=== PATIENT | female | born 1955 | race Caucasian/White ===

== ENCOUNTER → 2016-06-28 | Outpatient (CLI) | payer OTHER | LOC: BMCIMAGING 14:33 | DX: Z12.31 Encounter for screening mammogram for malignant neoplasm of breast (principal); Z85.3 Personal history of malignant neoplasm of breast | CPT/HCPCS: G0202 ==

== ENCOUNTER 2016-07-06 18:42 | Emergency (ER) | payer OTHER ==
[2016-07-06] MEDS ORDERED: LORazepam 1 MG TAB PO ONE (19:26)
--- NOTE | 2016-07-06 19:31 | EDPHY ---
H & P Time Seen by Provider: 07/06/16 18:59 HPI/ROS: CHIEF COMPLAINT: Methadone and benzodiazepine withdrawal HISTORY OF PRESENT ILLNESS: 61-year-old female history of chronic chronic pain secondary to orthopedic surgeries, chronic methadone use took a taxi to the emergency department because she would like to get into a rehab facility for both benzodiazepine and methadone withdrawal. It is currently Friday night. She received her dose yesterday of methadone from Dr. Mario Menendez . She denies seizure. Denies vomiting. She is concerned that she will experience further withdrawal symptoms. Denies suicidal or homicidal ideation. Denies hallucination PHYSICAL EXAM (Prior to examination, patient consented to physical exam, hands were washed and my usual and customary physical exam procedures followed) 1) GENERAL: Well-developed, well-nourished, alert and oriented. Appears anxious. 2) HEAD: Normocephalic 3) HEENT: sclera anicteric 4) LUNGS: Breathing comfortably. 5) SKIN: no rash. 6) MUSCULOSKELETAL: right lower extremity Parminder boot in place 7) NEUROLOGIC: Answering questions appropriately. Smoking Status: Former smoker Constitutional: Initial Vital Signs Temperature (C) 37.3 C 07/06/16 18:56 Heart Rate 138 H 07/06/16 18:56 Respiratory Rate 18 07/06/16 18:56 Blood Pressure 142/92 H 07/06/16 18:56 O2 Sat (%) 88 L 07/06/16 18:56 O2 Delivery Mode Room Air Allergies/Adverse Reactions: gabapentin [From Neurontin] Allergy (Verified 02/13/16 18:07) mirtazapine [From Remeron] Allergy (Verified 02/13/16 18:08) Home Medications: Medication Instructions Recorded Aspirin [Aspirin 81mg (*)] 81 mg PO HS 02/13/16 Atorvastatin Calcium [Lipitor 40 40 mg PO HS 02/13/16 mg (*)] Nebivolol HCl [Bystolic 5 mg (*)] 5 mg PO HS 02/13/16 clonazePAM [klonoPIN (*)] 2 mg PO TID 02/13/16 Acetaminophen [Tylenol 325mg (*)] 650 mg PO Q4HRS PRN #0 tab 02/18/16 Enoxaparin [Lovenox 40 MG (*)] 40 mg SC DAILY #0 syr 02/18/16 HYDROmorphone HCL [Dilaudid 2 mg 2 mg PO Q4HRS PRN #0 tab 02/18/16 (*)] Ibuprofen [Motrin (*)] 400 mg PO Q4HRS PRN #0 tab 02/18/16 Lactulose [Cephulac 20 gm/30 ml 20 gm PO TID PRN #0 ml 02/18/16 oral soln (*)] Magnesium Hydroxide [Milk of 30 ml PO DAILY PRN #0 udcup 02/18/16 Magnesia (*)] Methadone HCl [Methadone HCl 10 mg 25 mg PO BID #0 tab 02/18/16 (*)] Naloxone HCl [Narcan] 0 mg IVP PRN PRN #0 inj 02/18/16 Polyethylene Glycol 3350 [Miralax 17 gm PO DAILY PRN #0 pkt 02/18/16 17 gm (*)] Sennosides/Docusate Sodium 1 - 2 tab PO BID #0 tab 02/18/16 [Senokot-S] Simethicone [Mylicon] 80 - 160 mg PO QID PRN #0 tab.chew 02/18/16 Temazepam [Restoril 15 MG (*)] 15 - 30 mg PO HS PRN #0 cap 02/18/16 oxyCODONE/APAP 5/325 [Percocet 1 - 2 tab PO Q4HRS PRN #0 tab 02/18/16 5/325 (*)] LORazepam [Ativan 1 mg (RX)] 1 mg PO Q6 PRN #7 tab 07/06/16 Ondansetron Odt [Zofran Odt] 4 mg PO Q4PRN PRN #10 tab 07/06/16 MDM/Departure - MDM Medications Given: Discontinued Medications Lorazepam (Ativan) 1 mg PO EDNOW ONE Stop: 07/06/16 19:27 Last Admin: 07/06/16 19:31 Dose: 1 mg Lorazepam (Ativan 1 Mg Prepack#4) 1 btl TAKEHOME EDNOW ONE Stop: 07/06/16 19:43 Last Admin: 07/06/16 19:46 Dose: 1 btl Ondansetron HCl (Zofran Odt 4 Mg Prepack#2) 1 btl TAKEHOME EDNOW ONE Stop: 07/06/16 19:43 Last Admin: 07/06/16 19:48 Dose: 1 btl ED Course/Re-evaluation: The patient's nurse and I spent an extensive period of time speaking with the patient. Informed her that we are unable to provide methadone from the emergency department. Informed her that because it is currently Friday , there is no Case Management emergency department currently , we discussed the difficulties of getting into a long-term rehab facility for both benzodiazepine and methadone withdrawal on a Friday night. I have offered to provide her with supportive therapy and local resources, and given kraig prescription for Zofran, given her prescription for Ativan and strongly recommend that tomorrow and/or Friday she make further phone calls to either find a pain management provider and/or rehab facility. I have also left a note for the trimming caser emergency department contact the patient. I empathized with her ongoing situation. - Depart Disposition: Home, Routine, Self-Care Clinical Impression: Methadone withdrawal, Benzodiazepine dependence Condition: Good Instructions: Methadone (By mouth), Ondansetron (By mouth), Lorazepam (By injection) Additional Instructions: Call 911 if you developed chest pain, shortness of breath, thoughts of hurting herself, or any other symptoms that concern you Prescriptions: LORazepam [Ativan 1 mg (RX)] 1 mg PO Q6 PRN #7 tab PRN Reason: Anxiety Ondansetron Odt [Zofran Odt] 4 mg PO Q4PRN PRN #10 tab PRN Reason: Nausea Referrals: [facility],. [Clinic] - 07/08/16
[2016-07-06] MEDS ORDERED: LORAZEPAM 1 MG PREPACK#4 BTL TAKEHOME ONE (19:42)
[2016-07-06] MEDS ORDERED: ONDANSETRON 4MG PREPACK#2 BTL TAKEHOME ONE (19:42)
[2016-07-06 19:54] VITALS: BP 133/74; PULSE 61; RESP 16; TEMP 97.9; O2SAT 96
== END 2016-07-06 19:54 | disposition home or self-care (01) ==
DX: F11.23 Opioid dependence with withdrawal (principal); F19.239 Other psychoactive substance dependence with withdrawal, unspecified; Z87.891 Personal history of nicotine dependence; Z79.82 Long term (current) use of aspirin

== ENCOUNTER → 2016-08-01 | Outpatient (CLI) | payer OTHER | LOC: BMCIMAGING 12:54 | DX: R92.8 Other abnormal and inconclusive findings on diagnostic imaging of breast (principal) | CPT/HCPCS: 76641; G0204 ==

== ENCOUNTER 2016-09-04 16:45 | Emergency (ER) | payer OTHER ==
[2016-09-04] MEDS ORDERED: NS 1,000 ML IV ONE (17:12)
--- NOTE | 2016-09-04 17:12 | EDPHY ---
H & P Time Seen by Provider: 09/04/16 16:59 HPI/ROS: CHIEF COMPLAINT: Palpitations and memory loss earlier today HISTORY OF PRESENT ILLNESS: This 61-year-old woman has been on methadone for 20 years until the last 3 weeks when her local pain physician switched her to OxyContin. She went to her appointment this morning at 10:30 a.m. and then got home but does not remember anything from about noon when she took the trash out 10:10 two ten p.m.. She thinks she might have had a seizure and she thinks she had a seizure last month when she 1st went off methadone. However she did not have anyone else notice tonic-clonic activity as no one else was in the room, she did not bite her tongue, not incontinent. She also reports feeling intermittent palpitations short of breath over the past couple of days including getting out of the shower today and noticing a heart rate of 140 and a pulse oximetry in the 70s. REVIEW OF SYSTEMS: Eye: no change in vision ENT: no sore throat Cardiac: No known syncope. No chest pain. Pulmonary: no cough or SOB Abdomen: no vomiting, diarrhea, abdominal pain Musculoskeletal: Multiple chronic pain from orthopedic trauma for which she is on opioids chronically Skin: no rash Neuro: no headache Constitutional: no fever : no urinary symptoms A comprehensive 10 point review of systems is otherwise negative aside from elements mentioned in the history of present illness. PAST MEDICAL HISTORY: Breast cancer, multiple orthopedic, hysterectomy, chronic pain. Social history: Recently moved here from [place] General Appearance: Alert and conversant, cooperative. Eyes: No scleral icterus. ENT, Mouth: Normal mucous membranes. No tongue laceration or abrasion Respiratory: Normal respiratory effort, breath sounds equal, lungs are clear to auscultation. Cardiovascular: Regular rate and rhythm. Tachycardic. Gastrointestinal: Abdomen is soft and non tender. Neurological: Alert and oriented x3. Normally conversant. Face symmetric, normal movement and sensation in all extremities. Normal [id number] bilaterally and no pronator drift. Skin: Warm and dry, no rashes. Musculoskeletal: No peripheral edema and no joint swelling. Psychiatric: Not agitated. Emergency Department course/MDM: Patient presents with palpitations and tachycardia, we will evaluate with EKG and D-dimer and troponin. Patient's earlier altered mental status could be related to medications, also consider transient global amnesia, think seizure would be less likely without tongue biting or incontinence, or without withdrawal from MARYANNE agents. 1830: Results discussed with the patient. Unsure about tachycardia and hypoxemia, possibly that her oximeter was not working correctly given the tachycardia. Pretest probability for pulmonary embolism low, with negative D-dimer I think that does not indicate further workup is required tonight. Referred to primary care physician performance improvement consultant. Warned no driving. Smoking Status: Former smoker Constitutional: Initial Vital Signs Temperature (C) 37 C 09/04/16 16:51 Heart Rate 118 H 09/04/16 16:51 Respiratory Rate 20 09/04/16 16:51 Blood Pressure 117/76 09/04/16 16:51 O2 Sat (%) 97 09/04/16 16:51 O2 Delivery Mode Room Air Allergies/Adverse Reactions: gabapentin [From Neurontin] Allergy (Verified 09/04/16 16:49) mirtazapine [From Remeron] Allergy (Verified 09/04/16 16:49) Home Medications: Medication Instructions Recorded Aspirin 81mg (*) 09/04/16 Oxycontin 09/04/16 Medical Decision Making - Diagnostics EKG Interpretation: 12-lead EKG interpreted by me; official reading is in trace master. My interpretation is sinus tachycardia without ischemic changes. Imaging Results: Imaging Impressions Head CT 09/04/16 17:11 Impression: 1. Normal CT brain without contrast. 2. Mild right sphenoid sinusitis. 3.Consider MRI of the brain without and with contrast enhancement, if there is continued clinical concern for etiology of seizures. Findings and recommendations discussed with Emergency Department physician, CAREN CANTOR at 17:47 hour, 09/04/2016. Final report concurs with initial preliminary interpretation. Imaging: Discussed imaging studies w/ mail sorter and delivery Radiologist Differential Diagnosis: Differential diagnosis considered for narrow complex tachycardia including but not limited to various causes of sinus tachycardia, SVT, atrial flutter and atrial fibrillation. - Data Points Laboratory Results: Laboratory Results 09/04/16 17:30 09/04/16 17:30 09/04/16 09/04/16 09/04/16 17:30 17:30 17:30 WBC 5.53 10^3/uL 10^3/uL (3.80-9.50) RBC 3.93 10^6/uL L 10^6/uL (4.18-5.33) Hgb 12.6 g/dL g/dL (12.6-16.3) Hct 37.7 % L % (38.0-47.0) MCV 95.9 fL fL (81.5-99.8) MCH 32.1 pg pg (27.9-34.1) MCHC 33.4 g/dL g/dL (32.4-36.7) RDW 13.6 % % (11.5-15.2) Plt Count 333 10^3/uL 10^3/uL (150-400) MPV 9.4 fL fL (8.7-11.7) Neut % (Auto) 64.0 % % (39.3-74.2) Lymph % (Auto) 26.9 % % (15.0-45.0) [place] % (Auto) 7.8 % % (4.5-13.0) Eos % (Auto) 0.0 % L % (0.6-7.6) Baso % (Auto) 0.9 % % (0.3-1.7) Nucleat RBC Rel Count 0.0 % % (0.0-0.2) Absolute Neuts (auto) 3.54 10^3/uL 10^3/uL (1.70-6.50) Absolute Lymphs (auto) 1.49 10^3/uL 10^3/uL (1.00-3.00) Absolute Monos (auto) 0.43 10^3/uL 10^3/uL (0.30-0.80) Absolute Eos (auto) 0.00 10^3/uL L 10^3/uL (0.03-0.40) Absolute Basos (auto) 0.05 10^3/uL 10^3/uL (0.02-0.10) Absolute Nucleated RBC 0.00 10^3/uL 10^3/uL (0-0.01) Immature Gran % 0.4 % % (0.0-1.1) Immature Gran # 0.02 10^3/uL 10^3/uL (0.00-0.10) D-Dimer < 0.27 ug/mLFEU ug/mLFEU (0.00-0.50) Sodium 136 mEq/L mEq/L (134-144) Potassium 3.9 mEq/L mEq/L (3.5-5.2) Chloride 101 mEq/L mEq/L (97-110) Carbon Dioxide 25 mEq/l mEq/l (22-31) Anion Gap 10 mEq/L mEq/L (8-16) BUN 17 mg/dL mg/dL (7-23) Creatinine 0.8 mg/dL mg/dL (0.6-1.0) Estimated GFR > 60 Glucose 112 mg/dL H mg/dL (70-100) Calcium 10.0 mg/dL mg/dL (8.5-10.4) Troponin I < 0.012 ng/mL ng/mL (0-0.034) Medications Given: Discontinued Medications Sodium Chloride (Ns) 1,000 mls @ 0 mls/hr IV ONCE ONE PRN Reason: Wide Open Stop: 09/04/16 17:13 Last Admin: 09/04/16 17:30 Dose: 1,000 mls Departure - Departure Disposition: Home, Routine, Self-Care Clinical Impression: Amnesia, global, transient Condition: Good Instructions: Transient Global Amnesia (ED) Additional Instructions: It is possible that you had a seizure although I think that is less likely. It is possible that you had transient global amnesia. No driving until cleared by follow-up physician. Please call the referral physician's office tomorrow and tell them that you are referred to her through the emergency department. Try to follow up in the next week. Referrals: NONE *PRIMARY CARE P,. [Primary Care Provider] - As per Instructions Gini Ahumada MD [Medical Doctor] - As per Instructions
--- NOTE | 2016-09-04 17:21 | CPEKG ---
Heart Rate: 109 RR Interval: 550 P-R Interval: 140 QRSD Interval: 92 QT Interval: 348 QTC Interval: 469 P Hopkins: 74 QRS Hopkins: 88 T Wave Hopkins: 23 EKG Severity - BORDERLINE ECG - EKG Impression: SINUS TACHYCARDIA EKG Impression: CONSIDER INFERIOR INFARCT Electronically Signed By: Ovi Moran 04-Sep-2016 17:20:51
[2016-09-04 17:41] LABS: % IMMATURE GRANULYOCYTES 0.4 % (0.0-1.1); ABSOLUTE IMMATURE GRANULOCYTES 0.02 10^3/uL (0.00-0.10); ADD DIFF? NO; ADD MORPH? NO; ADD SCAN? NO; ATYPICAL LYMPHOCYTE FLAG 10 (0-99); FRAGMENT RBC FLAG 0 (0-99); HEMATOCRIT 37.7 % (38.0-47.0); HEMOGLOBIN 12.6 g/dL (12.6-16.3); LEFT SHIFT FLG 0 (0-99); LIPEMIA HEMOLYSIS FLAG 80 (0-99); MEAN CELL HEMOGLOBIN 32.1 pg (27.9-34.1); MEAN CELL HEMOGLOBIN CONCENTR. 33.4 g/dL (32.4-36.7); MEAN CELL VOLUME 95.9 fL (81.5-99.8); MEAN PLATELET VOLUME 9.4 fL (8.7-11.7); PLATELET CLUMPS FLAG 20 (0-99); PLATELET COUNT 333 10^3/uL (150-400); RED BLOOD CELL COUNT 3.93 10^6/uL (4.18-5.33); RED CELL DISTRIBUTION WIDTH 13.6 % (11.5-15.2)
[2016-09-04 18:11] LABS: ANION GAP 10 mEq/L (8-16); CARBON DIOXIDE 25 mEq/l (22-31); CHLORIDE 101 mEq/L (97-110); CREATININE 0.8 mg/dL (0.6-1.0); GLOMERULAR FILTRATION RATE > 60; GLUCOSE 112 mg/dL (70-100); POTASSIUM 3.9 mEq/L (3.5-5.2); SODIUM 136 mEq/L (134-144)
[2016-09-04 18:23] LABS: TROPONIN I < 0.012 ng/mL (0-0.034)
[2016-09-04 18:52] VITALS: BP 103/55; PULSE 79; RESP 18; TEMP 98.2; O2SAT 96
== END 2016-09-04 18:57 | disposition home or self-care (01) ==
DX: G45.4 Transient global amnesia (principal); Z79.82 Long term (current) use of aspirin; Z85.3 Personal history of malignant neoplasm of breast; Z87.891 Personal history of nicotine dependence

== ENCOUNTER 2017-04-26 19:50 | Emergency (ER) | payer OTHER ==
[2017-04-26 20:02] VITALS: BP 113/82
[2017-04-26] MEDS ORDERED: HYDROCODONE/APAP 5/325 TAB PO ONE (20:23)
--- NOTE | 2017-04-26 20:33 | EDPHY ---
H & P Stated Complaint: hx vertigo lost balance and fall r arm pain small lac to face HPI/ROS: HPI CHIEF COMPLAINT: Fall, right arm pain, right eyebrow laceration HISTORY OF PRESENT ILLNESS: This patient is a very pleasant 61 female, she presents emergency room after she took a mechanical trip and fall on her right outstretched hand. She states "her vertigo is acting up " she states that she suffers from vertigo at time she gets off balance. She states since her fall and has improved she does not feel off balance any further. She denies any chest pain or shortness of breath. Denies headache. Denies dizziness or vertiginous symptoms. She did fall on her outstretched right hand, sustaining pain to her distal right radius. Additionally she has a right lateral 1 cm eyebrow laceration. Patient reports to me tetanus shot is up-to-date. She denies any neck pain. Denies chest pain or shortness of breath. Denies headache. Main complaint 6/10 right distal radius pain or wrist pain. Past Medical History: Breast CA, hysterectomy, chronic pain Past Surgical History: No recent surgery Social History: Denies daily use drugs alcohol tobacco products. Family History: Noncontributory ROS REVIEW OF SYSTEMS: A comprehensive 10 point review of systems is otherwise negative aside from elements mentioned in the history of present illness. Exam Constitutional triage nursing summary reviewed, vital signs reviewed, awake/ alert. Eyes normal conjunctivae and sclera, EOMI, PERRLA. HENT normal inspection, atraumatic, moist mucus membranes, no epistaxis, neck supple/ no meningismus, no raccoon eyes. Respiratory clear to auscultation bilaterally, normal breath sounds, no respiratory distress, no wheezing. Cardiovascular rate normal, regular rhythm, no murmur, no edema, distal pulses normal. Gastrointestinal soft, non-tender, no rebound, no guarding, normal bowel sounds, no distension, no pulsatile mass. Genitourinary no CVA tenderness. Musculoskeletal right arm: Tenderness palpation and swelling to the distal radius. Good radial pulse. Good cap refill. Good meeting/event planner strength. Full range of motion of her wrist elbow forearm and hand. no midline vertebral tenderness , full range of motion, no calf swelling, no tenderness of extremities, no meningismus, good pulses, neurovascularly intact. Skin pink, warm, & dry, no rash, skin atraumatic. Neurologic awake, alert and oriented x 3, AAOx3, moves all 4 extremities equally, motor intact, sensory intact, CN II-XII intact, normal cerebellar, normal vision, normal speech. Psychiatric normal mood/affect. Heme/Lymph/Immune no lymphadenopathy. Differential Diagnosis: Includes but is not limited to in a particular order distal radius fracture, Colles fracture, comminuted wrist fracture, closed head injury, intracranial bleed, skull fracture, right eyebrow laceration,, vertigo which she now states resolved. Medical Decision Making: I did offer this patient a CT scan of her head given head strike and right eyebrow laceration however she has declined CT imaging. She did have an x-ray of her right wrist shows a Colles fracture of the distal radius. She is neurovascular intact.: Re-evaluation: 2043: Patient declined CT imaging of her head. Her neurological exam is unremarkable. Plan for this patient sugar-tong splint of the right wrist for Colles wrist fracture. [place] for pain control. We will clean her right eyebrow laceration to see if this needs to be repaired. She has been given return precautions patient understands she develops worsening headache, vomiting or fever to return emergency room. Additionally she should follow up with Orthopedics about her right wrist fracture. This will be provided on discharge paperwork. X-ray of the right wrist views Colles fracture. Source: Patient - Personal History Current Tetanus/Diphtheria Vaccine: Yes Current Tetanus Diphtheria and Acellular Pertussis (TDAP): Yes Tetanus Vaccine Date: < 10 years - Medical/Surgical History Hx Asthma: No Hx Chronic Respiratory Disease: No Hx Diabetes: No Hx Cardiac Disease: No Hx Renal Disease: No Hx Cirrhosis: No Hx Alcoholism: No Hx HIV/AIDS: No Hx Splenectomy or Spleen Trauma: No Other PMH: breast CA, right broken ankle 9 times, ortho sx, hysterectomy, hernia , chronic pain, on methadone - Social History Smoking Status: Former smoker Constitutional: Initial Vital Signs Temperature (C) 37.4 C 04/26/17 19:58 Heart Rate 102 H 04/26/17 19:58 Respiratory Rate 18 04/26/17 19:58 Blood Pressure 113/82 H 04/26/17 19:58 O2 Sat (%) 94 04/26/17 19:58 O2 Delivery Mode Room Air Allergies/Adverse Reactions: gabapentin [From Neurontin] Allergy (Verified 09/04/16 16:49) mirtazapine [From Remeron] Allergy (Verified 09/04/16 16:49) Home Medications: Medication Instructions Recorded Aspirin 81mg (*) 09/04/16 Doxepin HCl 04/26/17 Hydrocodone/APAP 5/325 [[place] 1 - 2 tab PO Q4H PRN #10 tab 04/26/17 5/325] Ibuprofen [Motrin (*)] 800 mg PO Q6-8PRN #14 tab 04/26/17 Medical Decision Making - Diagnostics Imaging Results: Imaging Impressions Forearm X-Ray 04/26/17 20:03 Impression: Distal radial Colles' fracture. 2. Right Forearm, Two Views History: Pain, post trauma. Fall. Findings: The distal radial Colles' fracture as described above. The remainder of the radius and ulna appear normal. No other fracture or malalignment is identified. There is mild hypertrophic change of the distal lateral humeral epicondyle. Impression: Colles' fracture. Otherwise negative. Wrist X-Ray 04/26/17 20:03 Impression: Distal radial Colles' fracture. 2. Right Forearm, Two Views History: Pain, post trauma. Fall. Findings: The distal radial Colles' fracture as described above. The remainder of the radius and ulna appear normal. No other fracture or malalignment is identified. There is mild hypertrophic change of the distal lateral humeral epicondyle. Impression: Colles' fracture. Otherwise negative. - Data Points Medications Given: Discontinued Medications Hydrocodone Bitart/Acetaminophen ([place] 5/325) 1 tab PO EDNOW ONE Stop: 04/26/17 20:24 Last Admin: 04/26/17 20:30 Dose: 1 tab Departure - Departure Disposition: Home, Routine, Self-Care Clinical Impression: Wrist fracture Qualifiers: Encounter type: initial encounter Fracture type: closed Laterality: right Qualified Code(s): S62.101A - Fracture of unspecified carpal bone, right wrist, initial encounter for closed fracture Condition: Good Instructions: Wrist Fracture in Adults (ED) Additional Instructions: 1. Ice your wrist. 2. Stay in her splint for comfort. 3. Follow up with Orthopedics. Please call their for an appointment. 4. [place] for moderate pain 5. Ibuprofen for mild pain. 6. Return emergency room if you have any worsening symptoms questions or concerns. Referrals: NONE *PRIMARY CARE P,. [Primary Care Provider] - As per Instructions Buddy Deleon MD [Medical Doctor] - As per Instructions Prescriptions: Hydrocodone/APAP 5/325 [[place] 5/325] 1 - 2 tab PO Q4H PRN #10 tab PRN Reason: Pain, Moderate Ibuprofen [Motrin (*)] 800 mg PO Q6-8PRN #14 tab
[2017-04-26 21:33] VITALS: PULSE 70; RESP 16; TEMP 97.9; O2SAT 98
== END 2017-04-26 21:32 | disposition home or self-care (01) ==
DX: S52.531A Colles' fracture of right radius, initial encounter for closed fracture (principal); Z85.3 Personal history of malignant neoplasm of breast; Z87.891 Personal history of nicotine dependence; Z79.82 Long term (current) use of aspirin; W01.0XXA Fall on same level from slipping, tripping and stumbling without subsequent striking against object, initial encounter
CPT/HCPCS: 73090; 73110; 99283; A4565

== ENCOUNTER → 2017-05-01 | Outpatient (CLI) | payer OTHER | LOC: BMCIMAGING 15:15 | PROVIDERS: ATTEND Orthopaedic Surgery Hand Surgery | DX: Z09 Encounter for follow-up examination after completed treatment for conditions other than malignant neoplasm (principal); S52.531D Colles' fracture of right radius, subsequent encounter for closed fracture with routine healing ==

== ENCOUNTER → 2017-05-14 | Outpatient (CLI) | payer OTHER | LOC: BMCIMAGING 10:01 | PROVIDERS: ATTEND Orthopaedic Surgery Hand Surgery | DX: S52.571A Other intraarticular fracture of lower end of right radius, initial encounter for closed fracture (principal) ==

== ENCOUNTER → 2017-05-28 | Outpatient (CLI) | payer OTHER | LOC: BMCIMAGING 13:08 | PROVIDERS: ATTEND Orthopaedic Surgery Hand Surgery | DX: S82.851D Displaced trimalleolar fracture of right lower leg, subsequent encounter for closed fracture with routine healing (principal) ==

== ENCOUNTER → 2017-06-18 | Outpatient (CLI) | payer OTHER | LOC: BMCIMAGING 13:54 | PROVIDERS: ATTEND Orthopaedic Surgery Hand Surgery | DX: S52.531D Colles' fracture of right radius, subsequent encounter for closed fracture with routine healing (principal) ==

== ENCOUNTER 2018-06-05 10:48 | Emergency (ER) | payer OTHER ==
--- NOTE | 2018-06-05 11:30 | EDPHY ---
H & P Stated Complaint: skin lesion l face Time Seen by Provider: 06/05/18 11:29 HPI/ROS: HPI: This is a 63-year-old female who presents with Chief Complaint: Lump on cheek Location: Left cheek Quality: Lump Duration: Several weeks Signs and Symptoms: no fever, no nausea, no vomiting, no diarrhea, no urinary symptoms, no chest pain, no shortness of breath, no wheezing, no cough, no sore throat, no neck stiffness, no joint pain, no swollen glands, no ear pain, no rash Timing: Acute Severity: [id number] Context: Patient reports that she recently moved from [place] to the [facility] and that she has a history of essential tremor, chronic pain, presents with complaints of several week history of a left cheek lump that has darkened in color. Patient reports that she never were sunscreen and was in the sun for considerable amounts of time. Patient denies inability to open her mouth or eat /drink food and liquids. Patient already has a primary care provider. Modifying Factors: None Comment: ROS: A comprehensive 10 system review of systems is otherwise negative aside from elements mentioned in the history of present illness. MEDICAL/SURGICAL/SOCIAL HISTORY: Medical/Surgical history: breast CA, right broken ankle 9 times, ortho sx, hysterectomy, hernia, chronic pain, on methadone Social history: Retired. Current every day smoker Family history noncontributory. CONSTITUTIONAL: Elderly, calm and cooperative, white female awake and alert, no obvious distress HEENT: Atraumatic and normocephalic, PERRL, EOMI. Nares patent; no rhinorrhea; no nasal mucosal edema. Tympanic membranes clear. Oropharynx clear, no exudate and moist pink mucosa. Airway patent. No lymphadenopathy. No meningismus. Cardiovascular: Normal S1/S2, regular rate, regular rhythm, without murmur rub or gallop. PULMONARY/CHEST: Symmetrical and nontender. Clear to auscultation bilaterally. Good air movement. No accessory muscle usage. ABDOMEN: Soft, nondistended, nontender, no rebound, no guarding, no peritoneal signs, no masses or organomegaly. No CVAT. EXTREMITIES: 2/2 pulses, strength 5/5, no deformities, no clubbing, no cyanosis or edema. NEUROLOGICAL: no focal neuro deficits. GCS 15. SKIN: Warm and dry, raised 2 mm pedunculated lesion on the left cheek that is dark in color and irregular borders; no erythema. no rash. Good capillary refill. Source: Patient Exam Limitations: No limitations - Personal History Tetanus Vaccine Date: < 10 years - Medical/Surgical History Hx Asthma: No Hx Chronic Respiratory Disease: No Hx Diabetes: No Hx Cardiac Disease: No Hx Renal Disease: No Hx Cirrhosis: No Hx Alcoholism: No Hx HIV/AIDS: No Hx Splenectomy or Spleen Trauma: No Other PMH: breast CA, right broken ankle 9 times, ortho sx, hysterectomy, hernia , chronic pain, on methadone - Social History Smoking Status: Current some day smoker Constitutional: Initial Vital Signs Temperature (C) 36.8 C 06/05/18 10:53 Heart Rate 92 06/05/18 10:53 Respiratory Rate 17 06/05/18 10:53 Blood Pressure 128/85 H 06/05/18 10:53 O2 Sat (%) 99 06/05/18 10:53 O2 Delivery Mode Room Air Allergies/Adverse Reactions: diphenhydramine [From Benadryl] Allergy (Verified 06/05/18 10:52) gabapentin [From Neurontin] Allergy (Verified 06/05/18 10:52) mirtazapine [From Remeron] Allergy (Verified 06/05/18 10:52) Home Medications: Medication Instructions Recorded Aspirin 81mg (*) 09/04/16 Doxepin HCl 04/26/17 Medical Decision Making ED Course/Re-evaluation: Vital signs reviewed and stable upon arrival. Left cheek lesion is suspicious for carcinoma. Case management consult for transportation resources and dermatology follow-up appointment date and time 1200: Notified by case management that cab voucher given to the patient. This patient was seen under the supervision of my secondary supervising physician. I evaluated care for this patient with a 10. Discussed this patient with Dr. Moran. Differential Diagnosis: Differential diagnosis includes but is not limited to abscess, lipoma, carcinoma , lymphadenopathy, cellulitis. Departure - Departure Disposition: Home, Routine, Self-Care Clinical Impression: Lesion of skin of cheek, Lack of access to transportation Condition: Good Instructions: Basal Cell Carcinoma (DC) Additional Instructions: Case management has arranged for dermatology appointment and time. Left cheek lesion is suspicious for malignancy and you will need close follow- up with biopsy. Referrals: ESTEFANY BILLINGS [Primary Care Provider] - As per Instructions
[2018-06-05 12:53] VITALS: BP 118/75
== END 2018-06-05 12:53 | disposition home or self-care (01) ==
DX: L98.9 Disorder of the skin and subcutaneous tissue, unspecified (principal)

== ENCOUNTER 2018-09-11 10:51 | Emergency (ER) | payer OTHER, MEDICAID ==
--- NOTE | 2018-09-11 11:45 | EDPHY ---
H & P Time Seen by Provider: 09/11/18 11:23 HPI/ROS: CHIEF COMPLAINT: Left wrist pain post fusion HISTORY OF PRESENT ILLNESS: 63-year-old [id number] female complaining of left wrist pain which occurred yesterday when she sustained a mechanical slip and fall onto outstretched left hand. Complaining of pain to the distal radius. No deformity. No paresthesia. This is a mechanical non syncopal episode. No head injury. No elbow pain or injury. PHYSICAL EXAM (Prior to examination, patient consented to physical exam, hands were washed and my usual and customary physical exam procedures followed) 1) GENERAL: [Well-developed, well-nourished, alert and oriented. Appears to be in no acute distress.] 2) HEAD: [Normocephalic] 3) HEENT: [Pupils equal, round, reactive to light bilaterally. ] 4) LUNGS: [Breathing comfortably.] 5) MUSCULOSKELETAL: Soft tissue swelling and tender to palpation distal radius. No significant deformity. Soft compartments. Normal coloration. 6) SKIN: [Intact ] 7) VASCULAR: pulses and cap refill present are brisk 8) NEUROLOGIC: Radial, ulnar, median nerve function intact with no deficits appreciated on exam DIFFERENTIAL DIAGNOSIS: [ in no particular order including but not limited to fracture, sprain, compartment syndrome] Xray of the [ ] interpreted by myself: [no definitive acute osseous abnormality ] Procedure: Splint A sugar-tong Orthoglass splint and sling was applied by ER technician plant and maintenance. After application of the splint I returned and re-examined the patient. The splint was adequately immobilizing the joint and distal to the splint the patient's circulation and sensation were intact. Patient shows no signs of compartment syndrome. Was given orthopedic precautions. Smoking Status: Current some day smoker Constitutional: Initial Vital Signs Temperature (C) 36.8 C 09/11/18 10:54 Heart Rate 111 H 09/11/18 10:54 Blood Pressure 126/81 H 09/11/18 10:54 O2 Sat (%) 96 09/11/18 10:54 O2 Delivery Mode Room Air Allergies/Adverse Reactions: diphenhydramine [From [employer] [facility]] Allergy (Verified 06/05/18 10:52) gabapentin [From Neurontin] Allergy (Verified 06/05/18 10:52) mirtazapine [From Remeron] Allergy (Verified 06/05/18 10:52) Home Medications: Medication Instructions Recorded Aspirin 81mg (*) 09/04/16 Doxepin HCl 04/26/17 MDM/Departure - MDM Imaging Results: Imaging Impressions Wrist X-Ray 09/11/18 11:24 Impression: Acute minimally angulated transverse distal radius fracture. Images reviewed myself Medications Given: Discontinued Medications Oxycodone/Acetaminophen (Percocet 5/325) 1 tab PO EDNOW ONE Stop: 09/11/18 11:48 Last Admin: 09/11/18 11:57 Dose: 1 tab ED Course/Re-evaluation: Patient was re-evaluated with serial exams. Reviewed her imaging studies together. She is neurovascular intact no evidence of median nerve damage. This is a closed fracture. I recommended follow-up with orthopedics and provided this referral information. Usual and customary orthopedic precautions and instructions provided. Care of patient under supervision of secondary supervising physician Dr Michaels . - Depart Disposition: Home, Routine, Self-Care Clinical Impression: Fracture of left distal radius Qualifiers: Encounter type: initial encounter Fracture type: closed Fracture morphology: other fracture Qualified Code(s): S52.592A - Other fractures of lower end of left radius, initial encounter for closed fracture Condition: Good Instructions: Wrist Fracture in Adults (ED) Additional Instructions: Return to the ER immediately if you experience discoloration, have worsening pain, numbness, tingling, or any other symptoms that concern you. If you received x-rays in the emergency department today, be advised, that ligamentous , tendon, muscular, and other non-bony injury cannot be fully ruled out. Try to keep your affected extremity elevated above the level of your chest, and keep cold packs on the affected area, for the next 48 hours. . Adult Pain & Fever Control: We recommend Acetaminophen (Tylenol) and Ibuprofen (Motrin,Advil) for pain and fever control. When fever is high or pain severe, both drugs can be used at the same time, but at different intervals. Please note the time differences. Your dose is: Acetaminophen 650mg every 4 to 6 hours Ibuprofen 600mg every 6 hours with food OR Note: do not take Acetaminophen with Hydrocodone (Vicodin, Lortab) or Oycodone (Percocet). These medications also contain Acetaminophen. No more than 3000mg of Acetaminophen should be taken in 24 hours (for an adult). Referrals: Buddy Deleon MD [Medical Doctor] - 2-3 days, call for appt.
[2018-09-11] MEDS ORDERED: OXYCODONE/APAP 5/325 TAB PO ONE (11:47)
[2018-09-11 12:45] VITALS: BP 127/84
--- NOTE | 2018-09-11 13:00 | ASDISCHSUM ---
Discharge Information Plan Status:Home with No Needs Medically Cleared to Leave: Discharge Date:09/11/2018 12:33 PM CM D/C Disposition:Home, Routine, Self-Care ADT D/C Disposition:Home, Routine, Self-Care Projected Discharge Date:09/11/2018 12:33 PM Transportation at D/C:Bus Ticket Discharge Delay Reason: Follow-Up Date:09/11/2018 12:33 PM Discharge Slot: Final Diagnosis: Placement Information Patient Contact Information Contact Name:YUVAL Relationship:Son Address:[address] City:[place] Alternate Phone: [facility]/Zip Code:[place] [address] Email: Financial Information Financial Class:Medicare Primary Plan Desc:MEDICARE OUTPATIENT Primary Plan Number:[id number] Secondary Plan Desc:MEDICAID [place] Secondary Plan Number:[id number] Assessment Information Intervention Information Intervention Type:Bus Pass Date of Service:09/11/2018 12:55 PM Patient Type:Emergency Room Staff Member:JESSIKA Montgomery [place] Hours:0.25 Discipline:Scientific Informatics Analyst Severity: Comment:Local Discount (pt has Medicare) bus p ass provided. Pt does not have active Medicaid at this time and does not hav e any funds, friends (roommate is at work), family (son is at work) or neighbors that can come and transport her home. Pt states she feels comfortable and safe with this plan an d appreciative of bus pass.
== END 2018-09-11 12:33 | disposition home or self-care (01) ==
PROC: 2W3DX1Z Immobilization of Left Lower Arm using Splint (ICD-10-PCS; principal; 2018-09-11)
DX: S52.592A Other fractures of lower end of left radius, initial encounter for closed fracture (principal); W01.0XXA Fall on same level from slipping, tripping and stumbling without subsequent striking against object, initial encounter